=== PATIENT | female | born 1955 | race Caucasian/White ===

== ENCOUNTER 2016-04-11 06:16 | Emergency (ER) | payer OTHER ==
[~2016-04-11] VITALS: Ht 165.1 cm; Wt 60.0 kg
[2016-04-11 06:19] VITALS: BP 191/86; PULSE 92; RESP 16; TEMP 98.2; O2SAT 100
--- NOTE | 2016-04-11 06:29 | PD ---
HPI Chief Complaint: acute on chronic back pain Time Seen by Provider: 06:29 Travel History International Travel<30 days: No Contact w/Intl Traveler<30days: No Traveled to known affect area: No History of Present Illness HPI 60-year-old female came to the emergency room with her with history of acute flareup of chronic back pain. Patient does not speak any [place]. History is obtained through translation. Patient has history of chronic back pain and had surgery done 20 years ago on her back. She gets frequent acute back pain issues. She recently moved from [place] and does not have a primary care doctor here. Currently she seemed to be anxious and in severe pain. She was able to ambulate however. She pointed the pain running all the way from her cervical spine down to her lumbar spine. [facility] Past Medical History Narrative Medical List of her past medical history is reviewed from the nursing note. Social History Tobacco Use: No Allergies-Medications (Allergen,Severity, Reaction): Coded Allergies: Iodine (Verified Allergy, Unknown, 04/11/16) Comments List of her allergies reviewed from the nursing note. Reported Meds & Prescriptions Reported Meds & Active Scripts Active Flexeril (Cyclobenzaprine HCl) 5 Mg Tab 5 Mg PO TID Naprosyn (Naproxen) 250 Mg Tab 250 Mg PO BID Narrative Medication List of her home medications reviewed from the nursing note. Review of Systems Except as stated in HPI: all other systems reviewed are Neg Physical Exam Narrative GENERAL: Awake, alert, anxious, moderate distress SKIN: Warm and dry. HEAD: Atraumatic. Normocephalic. EYES: Pupils equal and round. No scleral icterus. No injection or drainage. ENT: No nasal bleeding or discharge. Mucous membranes pink and moist. NECK: Trachea midline. No JVD. CARDIOVASCULAR: Regular rate and rhythm. No murmur appreciated. RESPIRATORY: No accessory muscle use. Clear to auscultation. Breath sounds equal bilaterally. GASTROINTESTINAL: Abdomen soft, non-tender, nondistended. Hepatic and splenic margins not palpable. MUSCULOSKELETAL: No obvious deformities. No clubbing. No cyanosis. No edema. NEUROLOGICAL: Awake and alert. No obvious cranial nerve deficits. Motor grossly within normal limits. Normal speech. PSYCHIATRIC: Appropriate mood and affect; insight and judgment normal. Data Data Last Documented VS Vital Signs Date Time Temp Pulse Resp B/P Pulse Ox O2 Delivery O2 Flow Rate FiO2 04/11/16 07:45 16 04/11/16 06:19 98.2 92 191/86 100 Room Air Orders Ketorolac Inj (Toradol Inj) (04/11/16 06:45) Orphenadrine Inj (Norflex Inj) (04/11/16 06:45) Acetamin-Hydrocod 325-5 Mg ([place] 5-325 (04/11/16 06:45) MDM Medical Decision Making Medical Screen Exam Complete: Yes Emergency Medical Condition: Yes Medical Record Reviewed: Yes Differential Diagnosis Acute on chronic back pain Narrative Course 6:40 AM I have ordered IM Toradol with Norflex and 10mg hydrocodone for her pain here. Patient will be discharged home on an anti-inflammatory and muscle relaxant prescription. Procedures EKG Prior to Arrival: No Diagnosis Primary Impression: Acute exacerbation of chronic low back pain Referrals: Primary Care Physician 3 days Additional Instructions: Please take the medications as per the prescription direction. Do not drive while on the medication since it will make you groggy. Follow up with the primary care. Med/Other Pt SpecificInfo: Prescription(s) given Scripts Cyclobenzaprine (Flexeril)5 Mg Tab5 Mg PO TID #21 TAB Ref 0 Prov:Anat Sharif MD 04/11/16 Naproxen (Naprosyn)250 Mg [id number] Mg PO BID #20 TAB Ref 0 Prov:Anat Sharif MD 04/11/16 Disposition: 01 DISCHARGE HOME Condition: Stable Anat Sharif MD Apr 11, 2016 06:29
[2016-04-11] MEDS ORDERED: NAPR250T57 PO (06:42)
[2016-04-11] MEDS ORDERED: CYCL5TAB PO (06:42)
[2016-04-11] MEDS ORDERED: KETOROLAC TROMETHAMINE 60 MG/2 ML (IM) VIAL IM ONE (06:45)
[2016-04-11] MEDS ORDERED: ACETAMINOPHEN/HYDROcodone 325 MG/5 MG TAB PO ONE (06:45)
[2016-04-11] MEDS ORDERED: ORPHENADRINE INJ 60 MG/2 ML AMP IM ONE (06:45)
[2016-04-11 07:45] VITALS: RESP 16
== END 2016-04-11 08:41 | disposition home or self-care (01) ==
LOC: NEPC 06:16
DX: M54.5 Low back pain (principal); G89.29 Other chronic pain
CPT/HCPCS: 96372; 99283; J1885; J2360